=== PATIENT | female | born 1970 | race American Indian/Alaskan Native ===

== ENCOUNTER 2016-09-02 09:02 | Emergency (ER) | payer SELFPAY ==
[2016-09-02 09:11] VITALS: BP 174/117
[2016-09-02] MEDS ORDERED: CLEOCIN PO ONE (11:57)
[2016-09-02] MEDS ORDERED: TYLENOL PO ONE (11:57)
--- NOTE | 2016-09-02 12:34 | Emergency Department Report ---
ED ENT HPI - General Chief complaint: Dental/Oral Stated complaint: TOOTHACHE Time Seen by Provider: 09/02/16 11:56 Source: patient Mode of arrival: Ambulatory Limitations: No Limitations - History of Present Illness Initial comments: 45-year-old female with a known past medical history of hypertension but did not take her medicine today comes in for toothache. Patient reports that it started last night's morning she woke up to some mild swelling of her left side. She does admit that she has quite a bit of bad teeth or mouth and she made an appointment with Dr. Man the dentist on Monday. - Related Data Previous Rx's Medication Instructions Recorded Last Taken Type Clindamycin [Clindamycin CAP] 300 mg PO Q8H #30 cap 09/02/16 Unknown Rx Ibuprofen [Motrin 800 MG tab] 800 mg PO Q8HR PRN #30 tablet 09/02/16 Unknown Rx Allergies Allergy/AdvReac Type Severity Reaction Status Date / Time No Known Allergies Allergy Unverified 09/02/16 09:08 ED Dental HPI - General Chief complaint: Dental/Oral Stated complaint: TOOTHACHE Time Seen by Provider: 09/02/16 11:56 Source: patient Mode of arrival: Ambulatory Limitations: No Limitations - Related Data Previous Rx's Medication Instructions Recorded Last Taken Type Clindamycin [Clindamycin CAP] 300 mg PO Q8H #30 cap 09/02/16 Unknown Rx Ibuprofen [Motrin 800 MG tab] 800 mg PO Q8HR PRN #30 tablet 09/02/16 Unknown Rx Allergies Allergy/AdvReac Type Severity Reaction Status Date / Time No Known Allergies Allergy Unverified 09/02/16 09:08 ED Review of Systems ROS: Stated complaint: TOOTHACHE Other details as noted in HPI ENT: dental pain ED Past Medical Hx - Medications Home Medications: Home Medications Medication Instructions Recorded Confirmed Last Taken Type Clindamycin [Clindamycin CAP] 300 mg PO Q8H #30 cap 09/02/16 Unknown Rx Ibuprofen [Motrin 800 MG tab] 800 mg PO Q8HR PRN #30 tablet 09/02/16 Unknown Rx ED Physical Exam - General Limitations: No Limitations General appearance: alert, in no apparent distress - Head Head exam: Present: atraumatic, normocephalic - Eye Eye exam: Present: other (mild swelling to the left cheek.) - Expanded ENT Exam Expanded Teeth exam: Present: dental caries, dental tenderness # (10,11,12), gingival enlargement ED Course Vital Signs 09/02/16 09/02/16 09:08 12:32 Temperature 98.6 F Pulse Rate 113 H Respiratory 16 18 Rate Blood Pressure 174/117 O2 Sat by Pulse 99 Oximetry ED Medical Decision Making - Medical Decision Making Patient's been evaluated by this provider in fast track. Discussed with patient that we'll place her on clindamycin 600 mg by mouth now and discharge her home with clindamycin 300 mg by mouth 3 times a day. We will give patient Tylenol 975 mg a day will be discharged on ibuprofen 800 mg by mouth ID when necessary for pain and swelling. Patient verbalized understanding she reports that she'll keep her appointment Dr. Man. Critical care attestation.: If time is entered above; I have spent that time in minutes in the direct care of this critically ill patient, excluding procedure time. ED Disposition Clinical Impression: Tooth abscess Disposition: DISCHARGED TO HOME OR SELFCARE Is pt being admited?: No Does the pt Need Aspirin: No Condition: Stable Instructions: Dental Caries (ED), Dental Abscess (ED) Additional Instructions: Very important to complete all antibiotics as prescribed. The area important for you to follow up with a dentist to get treatment on these teeth. Prescriptions: Clindamycin [Clindamycin CAP] 300 mg PO Q8H #30 cap Ibuprofen [Motrin 800 MG tab] 800 mg PO Q8HR PRN #30 tablet PRN Reason: Pain Referrals: GARY OLSON MD [Primary Care Provider] - 3-5 Days Forms: Work/School Release Form(ED)
== END 2016-09-02 13:35 | disposition home or self-care (01) ==
LOC: ED 09:02
DX: K04.7 Periapical abscess without sinus (principal)
CPT/HCPCS: 99282